=== PATIENT | male | born 1995 | race Two or more races ===

== ENCOUNTER 2017-06-08 00:10 | Emergency (ER) | payer MEDICAID, OTHER ==
[2017-06-08 00:14] VITALS: BP 140/86; PULSE 86; RESP 16; TEMP 99; O2SAT 98
--- NOTE | 2017-06-08 00:15 | EDPHY ---
H & P Stated Complaint: sore throat for 4days HPI/ROS: HPI CHIEF COMPLAINT: Sore throat HISTORY OF PRESENT ILLNESS: This patient is a 22-year-old male, otherwise healthy denies taking any significant medical history, he presents to the emergency room with 4 days of sore throat. No fever. Denies headache or neck pain or drain pain. Denies nausea vomiting. Main complaint sore throat painful when he swallows. No change in phonation. Past Medical History: No significant medical history Past Surgical History: No significant surgical history Social History: Denies daily use drugs alcohol tobacco products. [employer] student. Family History: Noncontributory. ROS REVIEW OF SYSTEMS: A comprehensive 10 point review of systems is otherwise negative aside from elements mentioned in the history of present illness. Exam Constitutional appears well nontoxic, vital signs reviewed. triage nursing summary reviewed, vital signs reviewed, awake/alert. Eyes normal conjunctivae and sclera, EOMI, PERRLA. HENT posterior pharynx is erythematous, there is no significant exudate or swelling. Uvula midline, moist mucus membranes, no epistaxis, neck supple/ no meningismus, no raccoon eyes. No trismus. No change in phonation. No stridor. Not drooling. Able to swallow. Mild submandibular lymphadenopathy. No signs of Yves's. Respiratory clear to auscultation bilaterally, normal breath sounds, no respiratory distress, no wheezing. Cardiovascular rate normal, regular rhythm, no murmur, no edema, distal pulses normal. Gastrointestinal soft, non-tender, no rebound, no guarding, normal bowel sounds, no distension, no pulsatile mass. Genitourinary no CVA tenderness. Musculoskeletal no midline vertebral tenderness, full range of motion, no calf swelling, no tenderness of extremities, no meningismus, good pulses, neurovascularly intact. Skin pink, warm, & dry, no rash, skin atraumatic. Neurologic awake, alert and oriented x 3, AAOx3, moves all 4 extremities equally, motor intact, sensory intact, CN II-XII intact, normal cerebellar, normal vision, normal speech. Psychiatric normal mood/affect. Heme/Lymph/Immune no lymphadenopathy. Differential Diagnosis: Includes but is not limited to in a particular order, viral pharyngitis, strep pharyngitis, mono. Medical Decision Making: Plan for this patient he appears well, plan for rapid strep ibuprofen. Re-evaluation: 1247: This patient appears well nontoxic. Not drooling. No trismus. Rapid strep is negative however given how much erythema he has in the posterior pharynx exam I will place him on antibiotics. Decadron and ibuprofen. Understands take these medications with food and return emergency room if there is any worsening symptoms questions or concerns. This includes high fever, trouble swallowing. Worsening symptoms. Source: Patient - Personal History Current Tetanus/Diphtheria Vaccine: Unsure Current Tetanus Diphtheria and Acellular Pertussis (TDAP): Unsure - Medical/Surgical History Hx Asthma: No Hx Chronic Respiratory Disease: No Hx Diabetes: No Hx Cardiac Disease: No Hx Renal Disease: No Hx Cirrhosis: No Hx Alcoholism: No Hx HIV/AIDS: No Hx Splenectomy or Spleen Trauma: No Other PMH: nil - Social History Smoking Status: Former smoker Constitutional: Initial Vital Signs Temperature (C) 37.2 C 06/08/17 00:12 Heart Rate 86 06/08/17 00:12 Respiratory Rate 16 06/08/17 00:12 Blood Pressure 140/86 H 06/08/17 00:12 O2 Sat (%) 98 06/08/17 00:12 O2 Delivery Mode Room Air Allergies/Adverse Reactions: No Known Allergies Allergy (Verified 06/08/17 00:14) Home Medications: Medication Instructions Recorded Amoxicillin Trihydrate 500 mg PO TID 7 Days cap 06/08/17 [Amoxicillin] Dexamethasone [Decadron 4 MG (*)] 4 mg PO DAILY #4 tab 06/08/17 Ibuprofen [Motrin (*)] 800 mg PO Q6-8PRN #10 tab 06/08/17 Medical Decision Making - Data Points Laboratory Results: 06/08/17 06/08/17 Unknown 00:15 Group A Strep Screen NEGATIVE (NEGATIVE) Group A Strep DNA Pending Medications Given: Discontinued Medications Dexamethasone (Decadron) 8 mg PO EDNOW ONE Stop: 06/08/17 00:25 Last Admin: 06/08/17 00:30 Dose: 8 mg Ibuprofen (Motrin) 800 mg PO EDNOW ONE Stop: 06/08/17 00:25 Last Admin: 06/08/17 00:30 Dose: 800 mg Departure - Departure Disposition: Home, Routine, Self-Care Clinical Impression: Pharyngitis Qualifiers: Pharyngitis/tonsillitis etiology: unspecified etiology Qualified Code(s): J02.9 - Acute pharyngitis, unspecified Condition: Good Instructions: Pharyngitis (ED) Additional Instructions: 1. Make sure to drink lots of fluids stay well-hydrated. 2. Antibiotics as prescribed. 3. Return to the emergency room if he develops worsening symptoms questions or concerns includes worsening sore throat, fever, vomiting. Referrals: NONE *PRIMARY CARE P,. [Primary Care Provider] - As per Instructions Prescriptions: Amoxicillin Trihydrate [Amoxicillin] 500 mg PO TID 7 Days cap Dexamethasone [Decadron 4 MG (*)] 4 mg PO DAILY #4 tab Ibuprofen [Motrin (*)] 800 mg PO Q6-8PRN #10 tab
[2017-06-08] MEDS ORDERED: DEXAMETHASONE 4 MG TAB PO ONE (00:24)
[2017-06-08] MEDS ORDERED: IBUPROFEN 800 MG TAB PO ONE (00:24)
== END 2017-06-08 00:57 | disposition home or self-care (01) ==
DX: J02.9 Acute pharyngitis, unspecified (principal); Z87.891 Personal history of nicotine dependence